=== PATIENT | female | born 1975 | race Hispanic/Latino ===

== ENCOUNTER → 2018-05-16 | Day surgery (SDC) | payer BC ==
[~2018-05-16] MED LIST: ACETAMINOPHEN 1000 MG/100 ML IV ONE; CEFTRIAXONE SOD 1 GM/NS 50 ML 50 ML IV ONE; DEXAMETHASONE SOD PHOS INJ 4 MG/ML VIAL IV ONE; FENTANYL CITRATE/PF 100MCG/2 ML INJ ONE; HYDROXYCHLOROQ200 MG PO; LABETALOL HCL100 MG PO; LIDOCAINE HCL 2% LOCAL INJ 5 ML SDV VIAL INJ ONE; MIDAZOLAM HCL 2 MG/2 ML VIAL ONE; ONDANSETRON HCL INJ 2MG/ML 2ML 2 MG/ML VIAL IV ONE; PROPOFOL IV EMULSION 10 MG/ML 20 ML VIAL IV ONE; SEVOFLURANE INHAL SOLN 250 ML PEN BTL INH ONE
--- NOTE | 2018-05-16 06:39 | Diagnostic Imaging Report ---
ABDOMEN-1VIEW ([facility]) Clinical history: Preoperative left stones Technique: AP view abdomen Comparison: None Findings: Abdomen: Nonobstructive bowel gas pattern. Other: Several stones project over the expected medial lower left kidney or ureter measuring up to 6 mm. Possible additional punctate calculi bilaterally. Medialization of the lower poles; horseshoe kidney/fusion anomaly not excluded. Numerous pelvic phleboliths. Impression: Left sided stones, as above. Correlate with prior CT imaging. Signed by: Dr Allegra Watt MD on 05/16/2018 6:35 AM
[2018-05-16 08:30] VITALS: BP 151/94
--- NOTE | 2018-05-17 12:03 | Operative Report ---
DATE OF PROCEDURE: May 16, 2018 PREOPERATIVE DIAGNOSIS: Left kidney stone. POSTOPERATIVE DIAGNOSIS: Left kidney stone. PROCEDURES 1. Staged, left-sided, shock-wave lithotripsy. 2. Supervision of fluoroscopy. ANESTHESIA: General. ESTIMATED BLOOD LOSS: Minimal. COMPLICATIONS: None. INDICATIONS: Ms. Ballard is a 42-year-old female with a history of shock-wave lithotripsy. She and I had a long discussion regarding the alternatives, risks and benefits, including doing nothing, shock-wave lithotripsy, ureteroscopy, percutaneous surgery, open surgery. She voiced an understanding of the options, the alternatives, and the risks and benefits, and she elected to proceed with shock-wave lithotripsy. PROCEDURE IN DETAIL: Informed consent was obtained. The patient was taken to the operative suite and placed supine on the table and underwent general anesthesia by the anesthesia service. There was no radiologist present. Attention was turned to the left renal outline. The stone was localized in the X, Y and Z planes. Lithotripsy was performed per the treatment report. The patient tolerated the procedure well and was transported to the recovery room in excellent condition. No untoward effects were noted. SUPERVISION OF FLUOROSCOPY: I was present for the entire procedure and supervised the fluoroscopy as no radiologist was present. Job#: [id number]
== END | disposition home or self-care (01) ==
LOC: OR 05:07
PROVIDERS: ATTEND Urology
DX: N20.0 Calculus of kidney (principal); Q63.1 Lobulated, fused and horseshoe kidney; R80.9 Proteinuria, unspecified; I10 Essential (primary) hypertension; M32.9 Systemic lupus erythematosus, unspecified; Z01.810 Encounter for preprocedural cardiovascular examination; Z68.31 Body mass index [BMI] 31.0-31.9, adult; Z84.1 Family history of disorders of kidney and ureter
CPT/HCPCS: 50590; 74018; 81025; 93005; J0131; J0696; J1100; J2001; J2250; J2405; J2704

== ENCOUNTER → 2018-07-08 | Outpatient (CLI) | payer BC ==
[~2018-07-08] MED LIST changes: -ACETAMINOPHEN 1000 MG/100 ML IV ONE; -CEFTRIAXONE SOD 1 GM/NS 50 ML 50 ML IV ONE; -DEXAMETHASONE SOD PHOS INJ 4 MG/ML VIAL IV ONE; -FENTANYL CITRATE/PF 100MCG/2 ML INJ ONE; -LIDOCAINE HCL 2% LOCAL INJ 5 ML SDV VIAL INJ ONE; -MIDAZOLAM HCL 2 MG/2 ML VIAL ONE; -ONDANSETRON HCL INJ 2MG/ML 2ML 2 MG/ML VIAL IV ONE; -PROPOFOL IV EMULSION 10 MG/ML 20 ML VIAL IV ONE; -SEVOFLURANE INHAL SOLN 250 ML PEN BTL INH ONE
--- NOTE | 2018-07-08 10:49 | Diagnostic Imaging Report ---
Exam: Abdominal film Clinical History: Stones Comparison: 05/16/2018 DISCUSSION: No interval change in position of multiple small calcifications projecting over the medial aspect of the lower pole of the left kidney or proximal left ureter, measuring up to 6 mm. Multiple round lucent centered pelvic calcifications likely represent phleboliths. Medialization of the lower poles of the renal shadows is again noted, raising the possibility of portion kidney. Bowel gas pattern is nonobstructive. Regional skeletal structures are intact. IMPRESSION: Stable appearance of probable left-sided renal calculi relative to 05/16/2018. Signed by: Dr. Burke Hager M.D. on 07/08/2018 10:46 AM
== END ==
LOC: RAD 09:35
PROVIDERS: ATTEND Urology
DX: N20.0 Calculus of kidney (principal)
CPT/HCPCS: 74018; 81025

== ENCOUNTER → 2018-07-31 | Day surgery (SDC) | payer BC ==
[~2018-07-31] MED LIST changes: +CEFTRIAXONE SOD 1 GM/NS 50 ML 50 ML IV ONE; +DEXAMETHASONE SOD PHOS INJ 4 MG/ML VIAL ONE; +FENTANYL CITRATE/PF 100MCG/2 ML INJ ONE; +IOPAMIDOL 610MG/1ML 300 MG/ML VIAL IV ONE; +LIDOCAINE HCL 2% LOCAL INJ 5 ML SDV VIAL INJ ONE; +MIDAZOLAM HCL 2 MG/2 ML VIAL ONE; +ONDANSETRON HCL INJ 2MG/ML 2ML 2 MG/ML VIAL ONE; +PROPOFOL IV EMULSION 10 MG/ML 20 ML VIAL ONE; +SEVOFLURANE INHAL SOLN 250 ML PEN BTL ONE
--- OUTSIDE RECORDS SUMMARY | 2018-07-31 05:04 | XMS REPORT ---
Author Author [facility] Address Unknown Phone Unavailable Care Team Providers Care Technology Resource Teacher Name Role Phone ANNA AVALOS Unavailable Unavailable Problems This patient has no known problems. Allergies, Adverse Reactions, Alerts This patient has no known allergies or adverse reactions. Medications This patient has no known medications. Results Test Description Test Time Test Comments Text Results Atomic Results Result Comments ABDOMEN-1VIEW ([facility]) 2018-07-08 10:44:00 [place] [address] Patient Name: JOSE SPEARS MR #: [id number] : 1975 Age/Sex: 43/F Req #: [id number] Adm Physician: Ordered by: ANNA AVALOS MD Report #: [id number] Location: [facility] Room/Bed: Procedure: [id number] DX/ABDOMEN-1VIEW ([facility]) Exam Date: 07/08/18 Exam Time: 1000 REPORT STATUS: Signed Exam: Abdominal film Clinical History: Stones Comparison: 05/16/2018 DISCUSSION: No interval change in position of multiple small calcifications projecting over the medial aspect of the lower pole of the left kidney or proximal left ureter, measuring up to 6 mm. Multiple round lucent centered pelvic calcifications likely represent phleboliths. Medialization of the lower poles of the renal shadows is again noted, raising the possibility of portion kidney. Bowel gas pattern is nonobstructive. Regional skeletal structures are intact. IMPRESSION: Stable appearance of probable left-sided renal calculi relative to 05/16/2018. Signed by: Dr. Nelson Jones M.D. on 07/08/2018 10:46 AM Dictated By: NELSON JONES MD 1046 Transcribed By: YVAN on 07/08/18 1046 COPY TO: ANNA AVALOS MD ABDOMEN-1VIEW ([facility]) 2018-05-16 06:30:00 [place] [address] Patient Name: JOSE SPEARS MR #: [id number] : 1975 Age/Sex: 42/F Req #: [id number] Adm Physician: Ordered by: ANNA AVALOS MD Report #: [id number] Location: OR Room/Bed: Procedure: [id number] DX/ABDOMEN-1VIEW ([facility]) Exam Date: 05/16/18 Exam Time: 0610 REPORT STATUS: Signed ABDOMEN-1VIEW ([facility]) Clinical history: Preoperative left stones Technique: AP view abdomen Comparison: None Findings: Abdomen: Nonobstructive bowel gas pattern. Other: Several stones project over the expected medial lower left kidney or ureter measuring up to 6 mm. Possible additional punctate calculi bilaterally. Medialization of the lower poles; horseshoe kidney/fusion anomaly not excluded. Numerous pelvic phleboliths. Impression: Left sided stones, as above. Correlate with prior CT imaging. Signed by: Dr Vickie Watt MD on 05/16/2018 6:35 AM Dictated By: VICKIE WATT MD 4 Transcribed By: YVAN on 05/16/18634 COPY TO: ANNA AVALOS MD
[2018-07-31 08:20] VITALS: BP 146/88
--- NOTE | 2018-07-31 17:45 | Operative Report ---
DATE OF PROCEDURE: 07/31/2018 SURGEON: Jules Adair MD PREOPERATIVE DIAGNOSES: 1. Microscopic hematuria. 2. Left renal calculus. POSTOPERATIVE DIAGNOSES: 1. Microscopic hematuria. 2. Left renal calculus. PROCEDURES: 1. Cystourethroscopy with right ureteral catheterization and right retrograde pyelogram (separate procedure for microscopic hematuria). 2. Left-sided ureteroscopy (entirely separate procedure for left renal calculi). 3. Supervision of fluoroscopy. 4. Interpretation of retrograde pyelography. ANESTHESIA: General. ESTIMATED BLOOD LOSS: Minimal. COMPLICATIONS: None. INDICATIONS FOR PROCEDURE: Ms. Ballard is a very pleasant 43-year-old female with a history of a horseshoe kidney, who presents now for definitive management of left erik renal unit. She and I had a long discussion regarding alternatives, risks, and benefits and she elected to proceed with ureteroscopy. PROCEDURE IN DETAIL: After informed consent was obtained, the patient was taken to operative suite and she was placed supine on the operating table. She underwent general anesthesia by Anesthesia Service. She was placed in the dorsal lithotomy position, sterilely prepped and draped in a sterile fashion for cystoscopy. A 21-Maori cystoscope was inserted per urethra. Bilateral retrograde pyelogram was performed. This revealed findings of left calcifications there were none on the right. Guidewire was inserted in left kidney. Second safety wire was introduced. Flexible ureteroscope was advanced to the renal pelvis. The entire pelvis was mapped. There were several Ricki's plaque seen, however, no stones seen free floating. Due to the inability to address the Ricki's plaques, bladder was drained, safety wire was removed, the patient was awakened from anesthesia and transferred to recovery room. Supervision of fluoroscopy and interpretation of retrograde pyelography: I was present for the entire procedure and I supervised the use of fluoroscopy portion, retrograde pyelogram portion, ureteral catheterization portion as was no radiologist present. Bilateral ureters were catheterized. Retrograde pyelogram was performed revealing normal collecting systems, typical horseshoe kidney appearance, lower pole moiety, filling defects on the left side. Jules Adair MD ES/MODL /[id number] cc: DO RALEIGH Read
== END | disposition home or self-care (01) ==
LOC: OR 05:02
PROVIDERS: ATTEND Urology
DX: N28.89 Other specified disorders of kidney and ureter (principal); N20.0 Calculus of kidney; N39.0 Urinary tract infection, site not specified; R80.9 Proteinuria, unspecified; I10 Essential (primary) hypertension; Q63.1 Lobulated, fused and horseshoe kidney; R31.29 Other microscopic hematuria; M32.9 Systemic lupus erythematosus, unspecified; Z01.810 Encounter for preprocedural cardiovascular examination; Z01.812 Encounter for preprocedural laboratory examination
CPT/HCPCS: 52351; 74420; 81025; 93005; C1758 ×2; J0696; J1100; J2001; J2250; J2405; J2704; Q9967